=== PATIENT | male | born 1985 | race Two or more races ===

== ENCOUNTER 2020-06-12 20:31 | Inpatient (IN) | payer MEDICAID ==
[~2020-06-12] VITALS: Ht 165.1 cm; Wt 51.5 kg
[2020-06-12] MEDS ORDERED: DEXTROSE 10% 1,000 ML IV ONE ×2 (21:00→23:45)
[2020-06-12] MEDS ORDERED: DEXTROSE (50%) 50ML SYRG IV ONE (21:00)
[2020-06-12 22:00] LABS: Basophils # (auto) 0.1 10 ^3/uL (0-0.2); Basophils % (auto) 0.8 % (0.0-2.0); Eosinophils # (auto) 0.1 10 ^3/uL (0-0.8); Eosinophils % (auto) 1.2 % (0.0-7.0); Hematocrit 35.6 % (41.0-53.0); Hemoglobin 12.1 g/dL (13.5-17.5); Lymphocytes # (auto) 0.4 10 ^3/uL (0.4-5.4); Lymphocytes % (auto) 6.7 % (10.0-50.0); Mean Corpuscular Hemoglobin 31.2 pg (28.0-32.0); Mean Corpuscular Volume 91.6 fL (80.0-100.0); Monocytes # (auto) 0.4 10 ^3/uL (0-1.3); Monocytes % (auto) 6.2 % (0.0-12.0); Neutrophils # (auto) 5.4 10 ^3/uL (1.6-8.6); Neutrophils % (auto) 85.1 % (37.0-80.0); Red Blood Cells 3.89 10^6/uL (4.5-5.90); Red Cell Distribution Width 15.4 % (11.8-14.3); White Blood Cell 6.4 10^3/uL (4.4-10.8)
[2020-06-12 22:07] LABS: Urine Bacteria NONE SEEN /hpf (None Seen); Urine Blood Negative /uL (Negative); Urine Hyaline Cast FEW /lpf (0 - 2); Urine Specific Gravity 1.008 (1.001-1.035); Urine WBC <1 /hpf (0 - 3)
[2020-06-12 22:16] LABS: Calcium 8.2 mg/dL (8.5-10.1); Potassium 3.4 mmol/L (3.5-5.1)
[2020-06-12 22:22] LABS: Albumin 3.3 g/dL (3.4-5.0); BUN/Creatinine Ratio 4.3; Bilirubin, Total 1.1 mg/dL (0.2-1.0); INR 1.03 (0.9-1.15); Partial Thromboplastin Time 25.1 sec (23.0-31.2); Total Protein 6.9 g/dL (6.4-8.2)
[2020-06-12 23:04] LABS: Alcohol, Urine < 3.0 mg/dL (0-10); Amphetamine Screen, Urine NEGATIVE (NEGATIVE); Barbiturate Scree,Urine NEGATIVE (NEGATIVE); Benzodiazephine Screen, Urine NEGATIVE (NEGATIVE); Cannabinoid Screen, Urine POSITIVE (NEGATIVE); Cocaine Screen, Urine NEGATIVE (NEGATIVE); Opiate Scree,Urine NEGATIVE (NEGATIVE); Phencyclidine Screen, Urine NEGATIVE (NEGATIVE)
[2020-06-12] MEDS ORDERED: ONDANSETRON HCL 4 MG/2 ML VIAL IV PRN (23:45)
[2020-06-12] MEDS ORDERED: DEXTROSE (50%) 50ML SYRG IV PRN (23:45)
[2020-06-12] MEDS: ACCU-CHEK COMFORT CURVE STRIP VI SCH (23:45)
[2020-06-12] MEDS ORDERED: NITROGLYCERIN 0.4 MG SL TAB SL PRN (23:45)
[2020-06-12] MEDS ORDERED: ACETAMINOPHEN 325 MG TAB PO PRN (23:45)
[2020-06-13] MEDS: ACCU-CHEK COMFORT CURVE STRIP VI SCH ×16 (00:45→20:00)
[2020-06-13] MEDS ORDERED: DEXTROSE 10% 1,000 ML IV ONE (09:15)
[2020-06-13] MEDS ORDERED: INSLANTI SC (14:33)
[2020-06-13] MEDS ORDERED: DEXTROSE (50%) 50ML SYRG IV PRN (14:45)
[2020-06-13 21:55] VITALS: BP 118/76
[2020-06-13 22:00] VITALS: BP 118/76
== END 2020-06-13 23:34 | disposition home or self-care (01) | DRG 420 ==
LOC: EDBD 20:31 → ER 20:35 → TELE 23:33 → TELE-CENTR 06-13 15:43
PROVIDERS: ADMIT Hospitalist; ATTEND Hospitalist
DX: E11.649 Type 2 diabetes mellitus with hypoglycemia without coma (principal); E87.6 Hypokalemia; Z20.822 Contact with and (suspected) exposure to COVID-19; F12.90 Cannabis use, unspecified, uncomplicated; F17.210 Nicotine dependence, cigarettes, uncomplicated; Z79.4 Long term (current) use of insulin; Z88.5 Allergy status to narcotic agent; Z88.6 Allergy status to analgesic agent
CPT/HCPCS: 36415; 70450; 71045; 80053; 80307; 80320; 81001; 82010; 82962; 85025; 85610; 85730; 87426; 96361; 96374; 99291; G0378

== ENCOUNTER 2022-03-05 13:33 | Inpatient (IN) | payer MEDICAID ==
[~2022-03-05] VITALS: Ht 165.1 cm; Wt 55.4 kg
[~2022-03-05 13:33] MED LIST: INSLANTI SC
[2022-03-05] MEDS ORDERED: SODIUM CHLORIDE 0.9% 1,000 ML IV ONE (13:45)
[2022-03-05] MEDS ORDERED: InsuLIN R (HUMAN) 100 UNITS in SODIUM CHL 0.9% 99 ML IV SCH ×2 (14:15→14:45)
[2022-03-05] MEDS ORDERED: DEXTROSE (50%) 50ML SYRG IV PRN ×3 (14:15→16:30)
[2022-03-05] MEDS ORDERED: INSULIN LANTUS (GLARGINE) 1 /0.01ml (100units/ml) SC ONE (14:15)
[2022-03-05 14:20] LABS: Albumin 3.9 g/dL (3.4-5.0); Basophils # (auto) 0 10 ^3/uL (0-0.2); Calcium 8.5 mg/dL (8.5-10.1); Eosinophils # (auto) 0 10 ^3/uL (0-0.8); Eosinophils % (auto) 0.4 % (0.0-7.0); Monocytes # (auto) 0.3 10 ^3/uL (0-1.3); Potassium 3.9 mmol/L (3.5-5.1); White Blood Cell 5.5 10^3/uL (4.4-10.8)
[2022-03-05 14:21] LABS: Basophils % (auto) 0.4 % (0.0-2.0); Hematocrit 43.2 % (41.0-53.0); Hemoglobin 13.8 g/dL (13.5-17.5); Lymphocytes # (auto) 1.9 10 ^3/uL (0.4-5.4); Lymphocytes % (auto) 35.3 % (10.0-50.0); Mean Corpuscular Hemoglobin 25.6 pg (28.0-32.0); Mean Corpuscular Volume 80.1 fL (80.0-100.0); Monocytes % (auto) 5.5 % (0.0-12.0); Neutrophils # (auto) 3.2 10 ^3/uL (1.6-8.6); Neutrophils % (auto) 58.4 % (37.0-80.0); Nucleated Red Blood Cells % 0.2 %; Red Blood Cells 5.39 10^6/uL (4.5-5.90); Red Cell Distribution Width 16.2 % (11.8-14.3)
[2022-03-05 14:28] LABS: BUN/Creatinine Ratio 5.6; Bilirubin, Total 0.2 mg/dL (0.2-1.0); Total Protein 7.1 g/dL (6.4-8.2)
[2022-03-05] MEDS ORDERED: ACCU-CHEK COMFORT CURVE STRIP VI SCH ×2 (15:00)
[2022-03-05] MEDS: SODIUM CHLORIDE 0.9% 1,000 ML IV SCH ×3 (15:49→20:23)
[2022-03-05] MEDS ORDERED: ONDANSETRON HCL 4 MG/2 ML VIAL IV PRN (16:30)
[2022-03-05] MEDS ORDERED: ACETAMINOPHEN 500 MG TAB PO PRN (16:30)
[2022-03-05] MEDS ORDERED: HYDROcodone-ACET 5/325MG TAB PO PRN (16:30)
[2022-03-05] MEDS ORDERED: MORPHINE SULFATE INJ 2 MG/ml SYRG IV PRN (16:30)
[2022-03-05] MEDS ORDERED: SODIUM CHLORIDE 0.9% 1,000 ML IV SCH (18:15)
[2022-03-05] MEDS: ACCU-CHEK COMFORT CURVE STRIP VI SCH ×2 (20:09→23:50)
[2022-03-05] MEDS: InsuLIN REG 1unit/0.01ml Soln (100units/ml) SC SCH ×2 (20:18→23:53)
[2022-03-05 20:32] LABS: Anion Gap 11 (5-15); BUN/Creatinine Ratio 7.1; Blood Urea Nitrogen 6 mg/dL (7-18); Calcium 8.1 mg/dL (8.5-10.1); Carbon Dioxide 24 mmol/L (21-32); Chloride 104 mmol/L (98-107); GFR African American 130 mL/min; GFR Non-African American 107 mL/min; Glucose 332 mg/dL (74-106); Potassium 3.6 mmol/L (3.5-5.1); Sodium 139 mmol/L (136-145)
[2022-03-05 21:40] VITALS: BP 99/0
[2022-03-05] MEDS: PANTOPRAZOLE 40 MG/10 ML VIAL INJ IV SCH (22:23)
[2022-03-06 00:20] LABS: Urine Bacteria NONE SEEN /hpf (None Seen); Urine Blood Negative /uL (Negative); Urine Specific Gravity 1.029 (1.001-1.035); Urine WBC <1 /hpf (0 - 3)
[2022-03-06 02:10] LABS: BUN/Creatinine Ratio 10.8; Calcium 7.8 mg/dL (8.5-10.1); Potassium 3.5 mmol/L (3.5-5.1)
[2022-03-06] MEDS: SODIUM CHLORIDE 0.9% 1,000 ML IV SCH ×4 (02:55→22:55)
[2022-03-06] MEDS: ACCU-CHEK COMFORT CURVE STRIP VI SCH ×6 (04:18→23:49)
[2022-03-06] MEDS: InsuLIN REG 1unit/0.01ml Soln (100units/ml) SC SCH ×6 (04:23→23:50)
[2022-03-06 05:00] VITALS: BP 96/56
[2022-03-06 07:18] LABS: Basophils # (auto) 0 10 ^3/uL (0-0.2); Eosinophils # (auto) 0.1 10 ^3/uL (0-0.8); Mean Corpuscular Hemoglobin 25.9 pg (28.0-32.0); Mean Corpuscular Hgb Conc. 32.8 g/dL (32.0-36.0); Monocytes # (auto) 0.5 10 ^3/uL (0-1.3); Nucleated Red Blood Cells % 0.1 %; Red Cell Distribution Width 16.4 % (11.8-14.3)
[2022-03-06 07:19] LABS: Basophils % (auto) 0.3 % (0.0-2.0); Eosinophils % (auto) 1.1 % (0.0-7.0); Hematocrit 40.3 % (41.0-53.0); Hemoglobin 13.2 g/dL (13.5-17.5); Lymphocytes # (auto) 2.4 10 ^3/uL (0.4-5.4); Lymphocytes % (auto) 29.7 % (10.0-50.0); Monocytes % (auto) 6.5 % (0.0-12.0); Neutrophils # (auto) 5.1 10 ^3/uL (1.6-8.6); Neutrophils % (auto) 62.4 % (37.0-80.0); White Blood Cell 8.1 10^3/uL (4.4-10.8)
[2022-03-06 07:45] LABS: BUN/Creatinine Ratio 17.9; Potassium 3.6 mmol/L (3.5-5.1)
[2022-03-06 07:46] LABS: Calcium 7.9 mg/dL (8.5-10.1)
[2022-03-06 08:54] VITALS: BP 86/50
[2022-03-06] MEDS ORDERED: INSULIN LANTUS (GLARGINE) 1 /0.01ml (100units/ml) SC SCH ×2 (10:00→12:00)
[2022-03-06] MEDS: MULTIPLE VITAMIN TAB PO SCH (10:39)
[2022-03-06] MEDS: THIAMINE HCL 100 MG TAB PO SCH (10:40)
[2022-03-06] MEDS: PANTOPRAZOLE 40 MG/10 ML VIAL INJ IV SCH ×2 (10:40→20:47)
[2022-03-06] MEDS ORDERED: MORPHINE SULFATE INJ 2 MG/ml SYRG IV ONE (11:45)
[2022-03-06] MEDS ORDERED: LORazepam 0.5 MG TAB PO PRN (12:15)
[2022-03-06] MEDS ORDERED: LORazepam 2MG/ML-1ML VIAL IV PRN (12:15)
[2022-03-06] MEDS: HYDROcodone-ACET 5/325MG TAB PO PRN (12:29)
[2022-03-06 12:39] VITALS: BP 108/78
[2022-03-06 17:17] VITALS: BP 123/78
[2022-03-06 22:00] VITALS: BP 91/55
[2022-03-07] MEDS: ACCU-CHEK COMFORT CURVE STRIP VI SCH ×3 (04:00→12:42)
[2022-03-07] MEDS: InsuLIN REG 1unit/0.01ml Soln (100units/ml) SC SCH ×3 (04:00→12:43)
[2022-03-07] MEDS: HYDROcodone-ACET 5/325MG TAB PO PRN ×2 (04:33→08:54)
[2022-03-07 05:00] VITALS: BP 111/73
[2022-03-07] MEDS: SODIUM CHLORIDE 0.9% 1,000 ML IV SCH ×2 (05:35→08:56)
[2022-03-07 06:43] LABS: Potassium 3.7 mmol/L (3.5-5.1)
[2022-03-07 06:46] LABS: Basophils # (auto) 0 10 ^3/uL (0-0.2); Eosinophils # (auto) 0.1 10 ^3/uL (0-0.8); Lymphocytes # (auto) 1.2 10 ^3/uL (0.4-5.4); Mean Corpuscular Hemoglobin 25.2 pg (28.0-32.0); Mean Corpuscular Volume 78.8 fL (80.0-100.0); Monocytes # (auto) 0.5 10 ^3/uL (0-1.3)
[2022-03-07 06:49] LABS: Basophils % (auto) 0.4 % (0.0-2.0); Eosinophils % (auto) 1.4 % (0.0-7.0); Hematocrit 37.1 % (41.0-53.0); Hemoglobin 11.9 g/dL (13.5-17.5); Lymphocytes % (auto) 25.6 % (10.0-50.0); Mean Corpuscular Hgb Conc. 32.1 g/dL (32.0-36.0); Monocytes % (auto) 10.3 % (0.0-12.0); Neutrophils # (auto) 2.9 10 ^3/uL (1.6-8.6); Neutrophils % (auto) 62.3 % (37.0-80.0); Red Blood Cells 4.71 10^6/uL (4.5-5.90); Red Cell Distribution Width 16.3 % (11.8-14.3); White Blood Cell 4.7 10^3/uL (4.4-10.8)
[2022-03-07 06:56] LABS: Albumin 3.1 g/dL (3.4-5.0); BUN/Creatinine Ratio 6.8; Bilirubin, Total 0.5 mg/dL (0.2-1.0); Total Protein 5.8 g/dL (6.4-8.2)
[2022-03-07 08:40] VITALS: BP 110/78
[2022-03-07] MEDS: PANTOPRAZOLE 40 MG/10 ML VIAL INJ IV SCH (08:53)
[2022-03-07] MEDS: MULTIPLE VITAMIN TAB PO SCH (08:54)
[2022-03-07] MEDS: THIAMINE HCL 100 MG TAB PO SCH (08:54)
[2022-03-07] MEDS ORDERED: INSULIN LANTUS (GLARGINE) 1 /0.01ml (100units/ml) SC SCH (12:00)
[2022-03-07 12:44] VITALS: BP 120/85
[2022-03-07] MEDS ORDERED: THIA100T13 PO (14:22)
[2022-03-07] MEDS ORDERED: INSLANTI SC (14:22)
[2022-03-07] MEDS ORDERED: INSLISPI SC (14:22)
== END 2022-03-07 16:18 | disposition home health service (06) | DRG 420 ==
LOC: EDBD 13:33 → ER 13:33 → OVERFLOW 16:25 → WEST WING 21:40
PROVIDERS: ADMIT Nurse Practitioner Acute Care; ATTEND Student in an Organized Health Care Education/Training Program
DX: E11.00 Type 2 diabetes mellitus with hyperosmolarity without nonketotic hyperglycemic-hyperosmolar coma (NKHHC) (principal); D69.6 Thrombocytopenia, unspecified; R64 Cachexia; K70.30 Alcoholic cirrhosis of liver without ascites; K62.5 Hemorrhage of anus and rectum; K86.1 Other chronic pancreatitis; Z68.20 Body mass index [BMI] 20.0-20.9, adult; E11.65 Type 2 diabetes mellitus with hyperglycemia; F17.210 Nicotine dependence, cigarettes, uncomplicated; I10 Essential (primary) hypertension; Z79.4 Long term (current) use of insulin; Z88.5 Allergy status to narcotic agent; K64.9 Unspecified hemorrhoids
CPT/HCPCS: 36415; 36600; 74176; 80048; 80053; 81001; 82010; 82140; 82270; 82805; 82962; 83036; 83690; 83735; 83930; 84100; 85025; 87426; 96360; 96361; 96372; 99291; C9113; G0378; J1815; J2405

== ENCOUNTER 2022-09-16 12:39 | Emergency (ER) | payer MEDICAID ==
[~2022-09-16] VITALS: Ht 160 cm; Wt 68.1 kg
[~2022-09-16 12:39] MED LIST changes: +INSLISPI SC; +THIA100T13 PO
[2022-09-16] MEDS ORDERED: SODIUM CHLORIDE 0.9% 1,000 ML IV ONE ×2 (14:15→16:00)
[2022-09-16 14:30] LABS: Basophils # (auto) 0 10 ^3/uL (0-0.2); Basophils % (auto) 1.1 % (0.0-2.0); Eosinophils # (auto) 0 10 ^3/uL (0-0.8); Eosinophils % (auto) 0.2 % (0.0-7.0); Hematocrit 43.4 % (41.0-53.0); Hemoglobin 14.6 g/dL (13.5-17.5); Lymphocytes # (auto) 1.6 10 ^3/uL (0.4-5.4); Lymphocytes % (auto) 37.3 % (10.0-50.0); Mean Corpuscular Hemoglobin 27.7 pg (28.0-32.0); Mean Corpuscular Hgb Conc. 33.7 g/dL (32.0-36.0); Mean Corpuscular Volume 82.2 fL (80.0-100.0); Monocytes # (auto) 0.2 10 ^3/uL (0-1.3); Monocytes % (auto) 5.5 % (0.0-12.0); Neutrophils # (auto) 2.4 10 ^3/uL (1.6-8.6); Neutrophils % (auto) 55.9 % (37.0-80.0); Nucleated Red Blood Cells % 0.1 %; Red Blood Cells 5.28 10^6/uL (4.5-5.90); Red Cell Distribution Width 14.6 % (11.8-14.3); White Blood Cell 4.4 10^3/uL (4.4-10.8)
[2022-09-16 14:37] LABS: Base Excess -2.9 mmol/L (-2.0-2.0)
[2022-09-16 14:49] LABS: Albumin 3.8 g/dL (3.4-5.0); BUN/Creatinine Ratio 8.8 (10.0-20.0); Calcium 8.7 mg/dL (8.5-10.1)
[2022-09-16 14:52] LABS: Bilirubin, Total 0.2 mg/dL (0.2-1.0); Total Protein 7.1 g/dL (6.4-8.2)
[2022-09-16 15:51] VITALS: BP 109/76; PULSE 84; RESP 12; TEMP 98.1; O2SAT 99
== END 2022-09-16 16:00 | disposition home or self-care (01) ==
LOC: EDBD 12:39 → ER 12:42
DX: E11.65 Type 2 diabetes mellitus with hyperglycemia (principal); F10.129 Alcohol abuse with intoxication, unspecified; I10 Essential (primary) hypertension; F17.210 Nicotine dependence, cigarettes, uncomplicated; Z88.5 Allergy status to narcotic agent; Z79.899 Other long term (current) drug therapy; Z79.84 Long term (current) use of oral hypoglycemic drugs
CPT/HCPCS: 36415; 36600; 71045; 80053; 80320; 82140; 82805; 83690; 83735; 84484; 85025; 96360; 96361; 99284; J7030

== ENCOUNTER 2022-10-27 16:16 | Inpatient (IN) | payer MEDICAID ==
[~2022-10-27] VITALS: Ht 165.1 cm; Wt 51.7 kg
[2022-10-27] MEDS ORDERED: SODIUM CHLORIDE 0.9% 1,000 ML IV ONE (16:45)
[2022-10-27] MEDS ORDERED: ONDANSETRON HCL 4 MG/2 ML VIAL IV ONE (16:45)
[2022-10-27 17:14] LABS: Basophils # (auto) 0 10 ^3/uL (0-0.2); Basophils % (auto) 0.5 % (0.0-2.0); Eosinophils # (auto) 0.1 10 ^3/uL (0-0.8); Eosinophils % (auto) 2.2 % (0.0-7.0); Hematocrit 40.2 % (41.0-53.0); Hemoglobin 13.3 g/dL (13.5-17.5); Lymphocytes % (auto) 40.9 % (10.0-50.0); Mean Corpuscular Hemoglobin 28.3 pg (28.0-32.0); Mean Corpuscular Hgb Conc. 33.2 g/dL (32.0-36.0); Mean Corpuscular Volume 85.4 fL (80.0-100.0); Monocytes # (auto) 0.3 10 ^3/uL (0-1.3); Neutrophils # (auto) 2.5 10 ^3/uL (1.6-8.6); Neutrophils % (auto) 50.4 % (37.0-80.0); Nucleated Red Blood Cells % 0.1 %; Red Blood Cells 4.71 10^6/uL (4.5-5.90); Red Cell Distribution Width 15.9 % (11.8-14.3); White Blood Cell 4.9 10^3/uL (4.4-10.8)
[2022-10-27] MEDS ORDERED: INSULIN LISPRO (HUMAN) 100 UNITS/ML ML SC ONE (17:15)
[2022-10-27 17:25] LABS: Alanine Aminotransferase 30 U/L (7-40); Albumin 3.7 g/dL (3.2-4.8); Alkaline Phosphatase 129 U/L (46-116); Anion Gap 9 (5-15); Aspartate Aminotransferase 32 U/L (13-40); BUN/Creatinine Ratio 9.9 (10.0-20.0); Blood Alcohol 295.7 mg/dL (<10); Blood Urea Nitrogen 9 mg/dL (9-23); Calcium 8.2 mg/dL (8.7-10.4); Carbon Dioxide 24 mmol/L (20-30); Chloride 105 mmol/L (98-107); Lipase 18 U/L (12-53); Sodium 138 mmol/L (136-145)
[2022-10-27 17:26] LABS: Bilirubin, Total 0.2 mg/dL (0.2-1.0); Total Protein 6.1 g/dL (5.7-8.2)
[2022-10-27 17:33] VITALS: PULSE 68; RESP 15; O2SAT 99
[2022-10-27 17:39] LABS: Base Excess -4.1 mmol/L (-2.0-2.0)
[2022-10-27 17:50] LABS: Glucose 407 mg/dL (74-106)
[2022-10-27 18:13] LABS: Amphetamine Screen, Urine Neg (NEGATIVE); Opiate Scree,Urine Neg (NEGATIVE); Urine Bacteria FEW /hpf (None Seen); Urine Blood Negative /uL (Negative); Urine Clarity Clear (Clear); Urine Color Colorless (Yellow); Urine Mucus FEW (None Seen); Urine Protein, UAD Negative (Negative); Urine Specific Gravity 1.016 (1.001-1.035); Urine Urobilinogen Normal (Negative); Urine WBC <1 /hpf (0 - 3)
[2022-10-27 18:14] LABS: Barbiturate Scree,Urine Neg (NEGATIVE); Benzodiazephine Screen, Urine Neg (NEGATIVE); Cannabinoid Screen, Urine Neg (NEGATIVE); Cocaine Screen, Urine Neg (NEGATIVE); Phencyclidine Screen, Urine Neg (NEGATIVE)
[2022-10-27] MEDS ORDERED: NOREPINEPHRINE 8 MG/250ML KIT 250 ML IV ONE (18:22)
[2022-10-27] MEDS: NOREPINEPHRINE 8 MG/250ML KIT 250 ML IV SCH (18:24)
[2022-10-27 19:40] VITALS: PULSE 70; RESP 8; O2SAT 98
[2022-10-28 02:00] VITALS: RESP 10; O2SAT 98
[2022-10-28] MEDS ORDERED: DOCUSATE SOD 100 MG CAP PO PRN (06:00)
[2022-10-28] MEDS ORDERED: HYDROcodone-ACET 5/325MG TAB PO PRN (06:00)
[2022-10-28] MEDS ORDERED: NITROGLYCERIN 0.4 MG SL TAB SL PRN (06:00)
[2022-10-28] MEDS ORDERED: DEXTROSE (50%) 50ML SYRG IV PRN (06:00)
[2022-10-28] MEDS ORDERED: MORPHINE SULFATE INJ 2 MG/ml SYRG IV PRN (06:00)
[2022-10-28] MEDS ORDERED: ACETAMINOPHEN 325 MG TAB PO PRN (06:00)
[2022-10-28] MEDS ORDERED: ONDANSETRON HCL 4 MG/2 ML VIAL IV PRN (06:00)
[2022-10-28] MEDS: SODIUM CHLOR 0.9% PF (SALINE LOCK) 10ML VIAL/SYR IV SCH ×3 (06:19→22:18)
[2022-10-28] MEDS: InsuLIN REG 1unit/0.01ml Soln (100units/ml) SC SCH ×3 (07:00→17:14)
[2022-10-28 07:06] LABS: Basophils # (auto) 0 10 ^3/uL (0-0.2); Basophils % (auto) 0.5 % (0.0-2.0); Eosinophils # (auto) 0.1 10 ^3/uL (0-0.8); Eosinophils % (auto) 1.3 % (0.0-7.0); Hematocrit 36.9 % (41.0-53.0); Hemoglobin 12.4 g/dL (13.5-17.5); Lymphocytes % (auto) 23.4 % (10.0-50.0); Mean Corpuscular Hemoglobin 28.3 pg (28.0-32.0); Mean Corpuscular Hgb Conc. 33.7 g/dL (32.0-36.0); Monocytes # (auto) 0.3 10 ^3/uL (0-1.3); Monocytes % (auto) 6.7 % (0.0-12.0); Neutrophils % (auto) 68.1 % (37.0-80.0); Nucleated Red Blood Cells % 0.1 %; Red Cell Distribution Width 16.2 % (11.8-14.3); White Blood Cell 4.5 10^3/uL (4.4-10.8)
[2022-10-28] MEDS: ACCU-CHEK COMFORT CURVE STRIP VI SCH ×4 (07:10→22:19)
[2022-10-28 07:15] VITALS: PULSE 84; RESP 13; O2SAT 99
[2022-10-28 08:05] LABS: Alanine Aminotransferase 26 U/L (7-40); Albumin 3.5 g/dL (3.2-4.8); Alkaline Phosphatase 107 U/L (46-116); Aspartate Aminotransferase 24 U/L (13-40); Bilirubin, Total 0.2 mg/dL (0.2-1.0); Calcium 7.8 mg/dL (8.5-10.1); Carbon Dioxide 21 mmol/L (20-30); Glucose 105 mg/dL (74-106); Total Protein 5.7 g/dL (5.7-8.2)
[2022-10-28 08:08] LABS: BUN/Creatinine Ratio 8.6 (10.0-20.0); Blood Urea Nitrogen < 5 mg/dL (9-23)
[2022-10-28 08:43] LABS: Anion Gap 9 (5-15); Chloride 112 mmol/L (98-107); Potassium 3.5 mmol/L (3.5-5.1); Sodium 142 mmol/L (136-145)
[2022-10-28] MEDS: MULTIPLE VITAMIN TAB PO SCH (10:24)
[2022-10-28] MEDS: THIAMINE HCL 100 MG TAB PO SCH (10:25)
[2022-10-28] MEDS: FOLIC ACID 1 MG TAB PO SCH (10:25)
[2022-10-28] MEDS: FAMOTIDINE (10MG/ML) 2ML VL IV SCH ×2 (10:25→22:17)
[2022-10-28] MEDS: NOREPINEPHRINE 8 MG/250ML KIT 250 ML IV SCH (18:24)
[2022-10-28 19:20] VITALS: PULSE 87; RESP 15; O2SAT 97
[2022-10-28] MEDS ORDERED: InsuLIN REG 1unit/0.01ml Soln (100units/ml) SC SCH (22:00)
[2022-10-29] VITALS (7 sets, daily range): BP systolic 111–128; BP diastolic 66–83; PULSE 61–98; RESP 20–21; TEMP 97.7–98.8; O2SAT 98–100
[2022-10-29] MEDS ORDERED: NALT380I IM (00:43)
[2022-10-29] MEDS ORDERED: GABA-1250 PO (00:43)
[2022-10-29] MEDS ORDERED: INSU100S4 SC (00:44)
[2022-10-29] MEDS ORDERED: INSLANTI SC (00:46)
[2022-10-29] MEDS: ACCU-CHEK COMFORT CURVE STRIP VI SCH ×2 (05:57→11:55)
[2022-10-29] MEDS: SODIUM CHLOR 0.9% PF (SALINE LOCK) 10ML VIAL/SYR IV SCH (06:00)
[2022-10-29 06:27] LABS: Basophils # (auto) 0 10 ^3/uL (0-0.2); Basophils % (auto) 0.7 % (0.0-2.0); Eosinophils # (auto) 0.1 10 ^3/uL (0-0.8); Eosinophils % (auto) 2.3 % (0.0-7.0); Hematocrit 38.2 % (41.0-53.0); Hemoglobin 12.8 g/dL (13.5-17.5); Lymphocytes # (auto) 1.1 10 ^3/uL (0.4-5.4); Lymphocytes % (auto) 34.3 % (10.0-50.0); Mean Corpuscular Hemoglobin 28.2 pg (28.0-32.0); Mean Corpuscular Hgb Conc. 33.7 g/dL (32.0-36.0); Mean Corpuscular Volume 83.7 fL (80.0-100.0); Monocytes # (auto) 0.3 10 ^3/uL (0-1.3); Monocytes % (auto) 9.5 % (0.0-12.0); Neutrophils # (auto) 1.7 10 ^3/uL (1.6-8.6); Neutrophils % (auto) 53.2 % (37.0-80.0); Nucleated Red Blood Cells % 0.1 %; Red Blood Cells 4.56 10^6/uL (4.5-5.90); Red Cell Distribution Width 15.6 % (11.8-14.3); White Blood Cell 3.1 10^3/uL (4.4-10.8)
[2022-10-29] MEDS: InsuLIN REG 1unit/0.01ml Soln (100units/ml) SC SCH ×2 (06:52→11:59)
[2022-10-29 06:53] LABS: Alanine Aminotransferase 26 U/L (7-40); Albumin 3.6 g/dL (3.2-4.8); Alkaline Phosphatase 137 U/L (46-116); Anion Gap 5 (5-15); Aspartate Aminotransferase 27 U/L (13-40); BUN/Creatinine Ratio 6.8 (10.0-20.0); Blood Urea Nitrogen 5 mg/dL (9-23); Calcium 8.9 mg/dL (8.7-10.4); Carbon Dioxide 29 mmol/L (20-30); Chloride 104 mmol/L (98-107); Sodium 138 mmol/L (136-145)
[2022-10-29 06:54] LABS: Bilirubin, Total 0.5 mg/dL (0.2-1.0); Glucose 239 mg/dL (74-106)
[2022-10-29] MEDS: FOLIC ACID 1 MG TAB PO SCH (09:20)
[2022-10-29] MEDS: MULTIPLE VITAMIN TAB PO SCH (09:20)
[2022-10-29] MEDS: THIAMINE HCL 100 MG TAB PO SCH (09:20)
[2022-10-29] MEDS: FAMOTIDINE (10MG/ML) 2ML VL IV SCH (10:00)
[2022-10-29] MEDS ORDERED: DEXTROSE (50%) 50ML SYRG IV PRN ×3 (12:30)
[2022-10-29] MEDS ORDERED: INSULIN LANTUS (GLARGINE) 1 /0.01ml (100units/ml) SC ONE ×2 (12:30)
[2022-10-29] MEDS ORDERED: ACCU-CHEK COMFORT CURVE STRIP VI SCH (17:00)
[2022-10-29] MEDS ORDERED: InsuLIN REG 1unit/0.01ml Soln (100units/ml) SC SCH ×6 (17:00→22:00)
[2022-10-30] MEDS ORDERED: INSULIN LANTUS (GLARGINE) 1 /0.01ml (100units/ml) SC SCH (07:00)
== END 2022-10-29 15:21 | disposition home or self-care (01) | DRG 52 ==
LOC: EDBD 16:16 → ER 16:16 → TELE 10-28 05:58 → TELE-EAST 10-28 23:01
PROVIDERS: ADMIT Nurse Practitioner Family; ATTEND Nurse Practitioner Family
DX: G92.8 Other toxic encephalopathy (principal); I95.9 Hypotension, unspecified; E10.65 Type 1 diabetes mellitus with hyperglycemia; F10.129 Alcohol abuse with intoxication, unspecified; F17.210 Nicotine dependence, cigarettes, uncomplicated; Z88.6 Allergy status to analgesic agent; Y90.8 Blood alcohol level of 240 mg/100 ml or more
CPT/HCPCS: 36415; 36600; 70450; 80053; 80307; 80320; 81001; 82805; 82962; 83690; 83880; 84484; 85025; 96360; 96372; G0378; J1815; J3490

== ENCOUNTER 2025-01-10 16:17 | Inpatient (IN) | payer MEDICAID ==
[~2025-01-10] VITALS: Ht 165.1 cm; Wt 50.0 kg
[~2025-01-10 16:17] MED LIST changes: +GABA-1250 PO; +NALT380I IM
[2025-01-10 17:09] VITALS: PULSE 98; RESP 16; O2SAT 98
[2025-01-10 17:58] LABS: Hematocrit 47.7 % (41.0-53.0); Hemoglobin 16.1 g/dL (13.5-17.5); Mean Corpuscular Hemoglobin 29.1 pg (28.0-32.0); Mean Corpuscular Volume 86.2 fL (80.0-100.0); Nucleated Red Blood Cells % 0.2 %
--- NOTE | 2025-01-10 18:11 | DVH ---
EXAM: CT HEAD WITHOUT CONTRAST INDICATION: [facility] TECHNIQUE: CT images of the head were obtained without administration of IV contrast. CT scans at this facility use dose modulation, iterative reconstruction, and/or weight based dosing when appropriate to reduce radiation dose to as low as reasonably achievable. COMPARISON: CT HEAD WITHOUT CONTRAST on DOS: 10/27/22 FINDINGS: PARENCHYMA: No acute hemorrhage. There is no mass effect, midline shift, or herniation. There is preservation of the oliver white differentiation. Mild scattered hypoattenuation along the periventricular, centrum semiovale, and deep white matter tracts, which are nonspecific however statistically most likely represent chronic microvascular ischemic change. VENTRICLES: No hydrocephalus. EXTRA-AXIAL SPACES: No extra-axial fluid collections. OTHER: The bony structures are intact. Visualized portions of the paranasal sinuses and mastoid air cells are clear. Degenerative change of bilateral temporomandibular joints. IMPRESSION: 1. No CT evidence of an acute intracranial abnormality.
[2025-01-10 18:17] LABS: Alanine Aminotransferase 26 U/L (7-40); Anion Gap 19 (5-15); BUN/Creatinine Ratio 8.7 (10.0-20.0); Bilirubin, Total 0.4 mg/dL (0.2-1.0); Blood Urea Nitrogen 9 mg/dL (9-23); Calcium 10.0 mg/dL (8.7-10.4); Carbon Dioxide 25 mmol/L (20-31); Potassium 3.7 mmol/L (3.5-5.1); Sodium 137 mmol/L (136-145); Total Protein 7.9 g/dL (5.7-8.2)
[2025-01-10 18:21] LABS: Albumin 4.8 g/dL (3.2-4.8); Alkaline Phosphatase 229 U/L (46-116); Chloride 93 mmol/L (98-107); Glucose 360 mg/dL (74-106)
--- NOTE | 2025-01-10 18:28 | DVH ---
CHEST RADIOGRAPH Indication: ams Technique: Single frontal view of the chest was obtained Comparison: XY CHEST XRAY 1 VIEW on DOS: 09/16/22, XY CHEST PORTABLE on DOS: 08/23/22, CHEST XRAY 1 VIEW on DOS: 06/12/20 FINDINGS: Lines and Tubes: None Lungs: No focal consolidation. Pleura: No effusion. No pneumothorax. Cardiomediastinal contours: Unremarkable Bones: No acute osseous abnormality. IMPRESSION: 1. No acute cardiopulmonary disease.
[2025-01-10 18:41] LABS: Lactic Acid w/Reflex 5.6 mmol/L (0.4-2.0)
[2025-01-10 18:45] LABS: Lipase 46 U/L (12-53)
[2025-01-10] MEDS: SODIUM CHLORIDE 0.9% 1,000 ML IV ONE ×2 (18:45→22:35)
--- NOTE | 2025-01-10 18:51 | ED.PDOC ---
History of Present Illness HPI Comments 40 y/o M is BIBA for c/c of ALOC. Significant history for DM. Per EMS personnel report, patient was found altered by family, this afternoon. Family commented on patient running out of his insulin, lately. Upon arrival to ED, patient was tachycardic, diaphoretic, and confused but did admit to drinking a lot of alcohol, recently. Blood glucose of 360 upon arrival to ED. Chief Complaint: ALOC Time Seen by MD: 16:30 Primary Care Provider: NYA Reviewed Notes: Nurses Notes, Payroll Supervisor Notes, Medications, Allergies Allergies: Coded Allergies: Morphine (Verified Allergy, Unknown, 03/05/22) Home Meds Active Scripts Thiamine HCl (Thiamine Hydrochloride) 100 Mg Tab, 100 MG PO DAILY for 30 Days, #30 TAB Prov:MARIA DEL ROSARIO NGUYEN MD 03/07/22 Insulin Lispro (Human) (Humalog) 100 Unit/Ml Inj, 12 UNIT SC TID for 30 Days, #30 INJ Prov:MARIA DEL ROSARIO NGUYEN MD 03/07/22 Insulin Glargine (Lantus) 100 Unit/Ml Inj, 40 UNIT SC DAILY for 30 Days, #30 INJ Prov:MARIA DEL ROSARIO NGUYEN MD 03/07/22 Reported Medications Insulin Glargine (Lantus) 100 Unit/Ml Inj, 40 UNIT SC QPM, INJ 10/29/22 Naltrexone (Vivitrol) 380 Mg Inj, IM 10/29/22 Gabapentin (Gabapentin) 300 Mg Cap, 1 CAP PO TID 10/29/22 Insulin Glargine (Lantus) 100 Unit/Ml Inj, 20 UNIT SC QPM, INJ 06/13/20 Information Source: Patient, Emergency Med Personnel Mode of Arrival: EMS Severity: Moderate Timing: Hours Duration: Since onset Prehospital treatment: 12 Lead EKG, Accucheck, Data Entry Past Medical History PAST MEDICAL HISTORY: DM, HTN, Liver Surgical History: Denies all surgeries Family History Family History: Reviewed,noncontributory to illness Social History Smoker: Cigarettes Alcohol: Heavy Drugs: Denies Drug Use Lives In: Home All Other Systems: Reviewed and Negative (Comprehensive review of systems are negative unless stated in HPI) Physical Exam General Appearance: No Apparent Distress, Normal HEENT: Normal ENT Inspection, Pharynx Normal, TMs Normal Neck: Full Range of Motion, Non-Tender, Normal, Normal Inspection Respiratory: Chest Non-Tender, Lungs Clear, No Accessory Muscle Use, No Respiratory Distress, Normal Breath Sounds Cardiovascular: No Edema, No JVD, No Murmur, No Gallop, Normal Peripheral Pulses, Tachycardia, Other (regular rhythm ) Breast Exam: Deferred Gastrointestinal: No Organomegaly, Non Tender, No Pulsatile Mass, Normal Bowel Sounds, Soft Genitalia: Deferred Pelvic: Deferred Rectal: Deferred Extremities: No calf tenderness, Normal capillary refill, Normal inspection, Normal range of motion, Non-tender, No pedal edema Musculoskeletal : Apperance: Normal Neurologic: psychologist research assistant II-XII nml as Tested, No Motor Deficits, No Sensory Deficits, Other (confused ) Cerebellar Function: Normal Reflexes: Normal Skin: Dry, Pallor (diaphorectic ), Warm Lymphatic: No Adenopathy Was a procedure done? Was a procedure done?: No Differential Dx Considerations may include: hyperglycemia, DKA, medication noncompliance, encephlopathy, dehydration, tomas ctrolyte imbalance, among others X-Ray, Labs, Meds, VS Vital Signs Date Time Temp Pulse Resp B/P (MAP) Pulse Ox O2 Delivery O2 Flow Rate FiO2 01/10/25 17:46 101 01/10/25 17:09 98.1 98 16 110/81 (91) 98 98.1 01/10/25 17:09 98 16 98 Room Air* 0 21 Lab Test 01/10/25 18:21 01/10/25 17:14 Range/Units Troponin I High Sensitivity 4 < 3 L </=54 ng/L White Blood Count 5.3 4.4-10.8 10^3/uL Red Blood Count 5.54 4.5-5.90 10^6/uL Hemoglobin 16.1 13.5-17.5 g/dL Hematocrit 47.7 41.0-53.0 % Mean Corpuscular Volume 86.2 80.0-100.0 fL Mean Corpuscular Hemoglobin 29.1 28.0-32.0 pg Mean Corpuscular Hemoglobin Concent 33.8 32.0-36.0 g/dL Red Cell Distribution Width 13.4 11.8-14.3 % Platelet Count 232 140-450 10^3/uL Mean Platelet Volume 8.3 6.9-10.8 fL Neutrophils (%) (Auto) 48.4 37.0-80.0 % Lymphocytes (%) (Auto) 41.7 10.0-50.0 % Monocytes (%) (Auto) 8.1 0.0-12.0 % Eosinophils (%) (Auto) 1.3 0.0-7.0 % Basophils (%) (Auto) 0.5 0.0-2.0 % Neutrophils # (Auto) 2.6 1.6-8.6 10 ^3/uL Lymphocytes # (Auto) 2.2 0.4-5.4 10 ^3/uL Monocytes # (Auto) 0.4 0-1.3 10 ^3/uL Eosinophils # (Auto) 0.1 0-0.8 10 ^3/uL Basophils # (Auto) 0 0-0.2 10 ^3/uL Nucleated Red Blood Cells 0.2 % Sodium Level 137 136-145 mmol/L Potassium Level 3.7 3.5-5.1 mmol/L Chloride Level 93 L 98-107 mmol/L Carbon Dioxide Level 25 20-31 mmol/L Anion Gap 19 H 5-15 Blood Urea Nitrogen 9 9-23 mg/dL Creatinine 1.04 0.700-1.30 mg/dL Glomerular Filtration Rate Calc 93 >90 mL/min BUN/Creatinine Ratio 8.7 L 10.0-20.0 Serum Glucose 360 H 74-106 mg/dL Lactic Acid Level 5.6 *H 0.4-2.0 mmol/L Calcium Level 10.0 8.7-10.4 mg/dL Total Bilirubin 0.4 0.2-1.0 mg/dL Aspartate Amino Transferase (AST) 23 13-40 U/L Alanine Aminotransferase (ALT) 26 7-40 U/L Alkaline Phosphatase 229 H 46-116 U/L Total Protein 7.9 5.7-8.2 g/dL Albumin 4.8 3.2-4.8 g/dL Lipase 46 12-53 U/L Plasma/Serum Blood Alcohol 313.7 H <10 mg/dL Time of 1ST Reevaluation: 17:00 Reevaluation 1ST: Unchanged Patient Education/Counseling: Diagnosis, Treatment Family Education/Counseling: No Family Present SEPSIS Sepsis Screen Physician Orders Urinalysis (01/10/25 16:38) Electrocardigram (01/10/25 16:38) Head Without Contrast (01/10/25 16:38) Blood Culture (01/10/25 16:38) Urine Bacterial Culture (01/10/25 16:38) Chest Portable (01/10/25 16:38) Troponin-I Hs (01/10/25 19:38) Electrocardigram (01/10/25 19:38) Drug Screen (01/10/25 17:52) Sodium Chloride 0.9% (01/10/25 18:45) Ceftriaxone 1gm/50ml (Rocephin) (01/10/25 18:45) Vital Signs Date Time Temp Pulse Resp B/P (MAP) Pulse Ox O2 Delivery O2 Flow Rate FiO2 01/10/25 17:46 101 01/10/25 17:09 98.1 98 16 110/81 (91) 98 98.1 01/10/25 17:09 98 16 98 Room Air* 0 21 Laboratory Tests Test 01/10/25 17:14 Lactic Acid Level 5.6 mmol/L (0.4-2.0) *H White Blood Count 5.3 10^3/uL (4.4-10.8) Departure 1 Departure Time of Disposition: 18:58 (You presented with altered mental status likely secondary to alcohol intoxication however patient also is uncontrolled diabetes and suspected sepsis. We will admit patient for further workup and expert consultation) Impression: Primary Impression: Suspected sepsis Additional Impressions: Acute metabolic encephalopathy Uncontrolled diabetes mellitus Alcohol intoxication Disposition: ADMITTED INPATIENT Admit to: Med Surg Condition: Guarded Critical Care Note Critical Care Time?: Yes Critical care comment: Altered mental status and uncontrolled diabetes with a suspected sepsis Authorized and Performed by: Lane Richardson MD Total critical care time: Approximately 38 minutes Due to a high probability of clinically significant, life threatening deterioration, the patient required my highest level of preparedness to intervene emergently and I personally spent this critical care time directly and personally managing the patient. This critical care time included obtaining a history; examining the patient; pulse oximetry; ordering and review of studies; arranging urgent treatment with development of a management plan; evaluation of patient's response to treatment; frequent reassessment; and, discussions with other providers. This critical care time was performed to assess and manage the high probability of imminent, life-threatening deterioration that could result in multi-organ failure. It was exclusive of separately billable procedures and treating other patients and teaching time. Please see my other sections and the rest of the note for further information on patient assessment and treatment. Stability Stability form required: No Heart Score Heart Score: Heart Score Response (Comments) Value History N/A 0 EKG N/A 0 Age N/A 0 Risk Factors N/A 0 Troponin N/A 0 Total 0 I personally scribed for LANE RICHARDSON MD ([email or web address]) on 01/10/25 at 18:51. Electronically submitted by Arpan Guzman ([email or web address]). LANE RICHARDSON MD Jan 10, 2025 18:51
[2025-01-10 19:20] VITALS: PULSE 101; RESP 19; O2SAT 98
--- NOTE | 2025-01-10 21:43 | DVHHP2 ---
History of Present Illness Reason for Visit: Alcohol intoxication History of Present Illness The patient is a 40-year-old male with past medical history of liver disease, hypertension, and diabetes mellitus who presented to [facility] ED for evaluation of altered level of consciousness. As reported by EMS, patient was found altered than usual baseline by family. Family reports that patient ran out of his insulin saline lately, noncompliant with medication regimen. Patient was seen and evaluated in the ED, laboratory data shows WBC 5.3, platelets 232, sodium 137, potassium 3.7, BUN nine, creatinine 1.04, GFR 93, glucose 360, calcium 10.0, lipase 46, alkaline phos 229, lactic acid 5.6, serum alcohol 313.7, blood pressure 113/72, heart rate 94, temperature 98.7 F, O2 saturation 99% on room air. Head CT showed no evidence of acute intracranial abnormality. Please see medication orders section in the computer. On my assessment, patient denied chest pain, no dizziness, diaphoresis, shortness of breaths, no abdominal pain, diarrhea, nausea, vomiting, fever, no chills. Patient was admitted for further evaluation and medical management. Past Medical History DM, HTN, Liver disease Past Surgical History Denies all surgeries Family History Reviewed, noncontributory to the management of this case. Past Social History The patient lives at home, smokes cigarettes, drinks alcohol heavily, denies illicit drugs abuse. Review of Systems Constitutional: Yes: Weakness; No: Fever, Chills, Sweats, Malaise, Other Eyes: No: Pain, Vision change, Conjunctivae inflammation, Eyelid inflammation, Other, Redness ENT: No: Ear pain, Ear discharge, Nose pain, Nose discharge, Nose congestion, Mouth pain, Mouth swelling, Throat pain, Throat swelling, Other Respiratory: No: Cough, Dry, Shortness of breath, SOB with excertion, Wheezing, Hemoptysis, Pleuritic Pain, Sputum, Wheezing, Other Cardiovascular: No: Chest Pain, Palpitations, Orthopnea, Paroxysmal Noc. Dyspnea, Edema, Lt Headedness, Other Gastrointestinal: No: Nausea, Vomiting, Abdominal Pain, Diarrhea, Constipation, Melena, Hematochezia, Other Genitourinary: No Dysuria, No Frequency, No Incontinence, No Hematuria, No Retention, No Other Musculoskeletal: No: other, neck pain, shoulder pain, arm pain, back pain, hand pain, leg pain, foot pain Skin: No: Rash, Lesions, Jaundice, Bruising, Other Neurological: Other (Altered level of consciousness); No: Weakness, Numbness, Incoordination, Change in speech, Confusion, Seizures Allergies: Coded Allergies: Morphine (Verified Allergy, Unknown, 03/05/22) Exam Vital Signs Vital Signs Date Time Temp Pulse Resp B/P (MAP) Pulse Ox O2 Delivery O2 Flow Rate FiO2 01/10/25 19:26 98.7 94 16 113/72 99 98.7 01/10/25 19:20 Room Air* 0 21 General Appearance: Alert, Oriented X3, Cooperative, No acute distress HEENT: Atraumatic, PERRLA, EOMI, Mucous membr. moist/pink Respiratory: Normal air movement Cardiovascular: Regular rate, Normal S1, Normal S2, No murmurs Abdominal: Normal bowel sounds, Soft, No tenderness, No hepatospenomegaly, No masses Extremities: No clubbing, No cyanosis, No edema, Normal pulses, No tenderness/swelling Skin: No rashes, No significant lesion Neuro: Normal speech, Normal tone, Sensation intact, Cranial nerves 3-12 NL, Reflexes 2+, Other (Generalized weakness) Psych/Mental Status: Mental status NL, Mood NL Labs/Xrays Labs Test 01/10/25 19:46 01/10/25 18:21 01/10/25 17:14 Range/Units Lactic Acid Level 7.3 *H 0.4-2.0 mmol/L Troponin I High Sensitivity 4 </=54 ng/L White Blood Count 5.3 4.4-10.8 10^3/uL Red Blood Count 5.54 4.5-5.90 10^6/uL Hemoglobin 16.1 13.5-17.5 g/dL Hematocrit 47.7 41.0-53.0 % Mean Corpuscular Volume 86.2 80.0-100.0 fL Mean Corpuscular Hemoglobin 29.1 28.0-32.0 pg Mean Corpuscular Hemoglobin Concent 33.8 32.0-36.0 g/dL Red Cell Distribution Width 13.4 11.8-14.3 % Platelet Count 232 140-450 10^3/uL Mean Platelet Volume 8.3 6.9-10.8 fL Neutrophils (%) (Auto) 48.4 37.0-80.0 % Lymphocytes (%) (Auto) 41.7 10.0-50.0 % Monocytes (%) (Auto) 8.1 0.0-12.0 % Eosinophils (%) (Auto) 1.3 0.0-7.0 % Basophils (%) (Auto) 0.5 0.0-2.0 % Neutrophils # (Auto) 2.6 1.6-8.6 10 ^3/uL Lymphocytes # (Auto) 2.2 0.4-5.4 10 ^3/uL Monocytes # (Auto) 0.4 0-1.3 10 ^3/uL Eosinophils # (Auto) 0.1 0-0.8 10 ^3/uL Basophils # (Auto) 0 0-0.2 10 ^3/uL Nucleated Red Blood Cells 0.2 % Sodium Level 137 136-145 mmol/L Potassium Level 3.7 3.5-5.1 mmol/L Chloride Level 93 L 98-107 mmol/L Carbon Dioxide Level 25 20-31 mmol/L Anion Gap 19 H 5-15 Blood Urea Nitrogen 9 9-23 mg/dL Creatinine 1.04 0.700-1.30 mg/dL Glomerular Filtration Rate Calc 93 >90 mL/min BUN/Creatinine Ratio 8.7 L 10.0-20.0 Serum Glucose 360 H 74-106 mg/dL Calcium Level 10.0 8.7-10.4 mg/dL Total Bilirubin 0.4 0.2-1.0 mg/dL Aspartate Amino Transferase (AST) 23 13-40 U/L Alanine Aminotransferase (ALT) 26 7-40 U/L Alkaline Phosphatase 229 H 46-116 U/L Total Protein 7.9 5.7-8.2 g/dL Albumin 4.8 3.2-4.8 g/dL Lipase 46 12-53 U/L Plasma/Serum Blood Alcohol 313.7 H <10 mg/dL PATIENT: KYLEE ZURITA ACCT: [id number] UNIT: [id number] : 1985 LOC: ER ROOM / BED: / AGE / SEX: 40 / M ADM STATUS: REG ER SERVICE [id number] ORDERING PHYSICIAN: LANE CASEY MD PROCEDURE(s): HWOCT - HEAD WITHOUT CONTRAST REASON: [facility] ORDER NUMBER(s): [id number], ACCESSION NUMBER(s): [id number] EXAM: CT HEAD WITHOUT CONTRAST INDICATION: ams TECHNIQUE: CT images of the head were obtained without administration of IV contrast. CT scans at this facility use dose modulation, iterative reconstruct ion, and/or weight based dosing when appropriate to reduce radiation dose to as low as reasonably achievable. COMPARISON: CT HEAD WITHOUT CONTRAST on DOS: 10/27/22 FINDINGS: PARENCHYMA: No acute hemorrhage. There is no mass effect, midline shift, or herniation. There is preservation of the oliver white differentiation. Mild scattered hypoattenuation along the periventricular, centrum semiovale, and deep white matter tracts, which are nonspecific however statistically most likely represent chronic microvascular ischemic change. VENTRICLES: No hydrocephalus. EXTRA-AXIAL SPACES: No extra-axial fluid collections. OTHER: The bony structures are intact. Visualized portions of the paranasal sinuses and mastoid air cells are clear. Degenerative change of bilateral temporomandibular joints. IMPRESSION: 1. No CT evidence of an acute intracranial abnormality. ORDERING PHYSICIAN: LANE CASEY MD PROCEDURE(s): CXRP - CHEST PORTABLE REASON: [facility] ORDER NUMBER(s): [id number], ACCESSION NUMBER(s): [id number] CHEST RADIOGRAPH Indication: ams Technique: Single frontal view of the chest was obtained Comparison: XY CHEST XRAY 1 VIEW on DOS: 09/16/22, XY CHEST PORTABLE on DOS: 08/23/22, CHEST XRAY 1 VIEW on DOS: 06/12/20 FINDINGS: Lines and Tubes: None Lungs: No focal consolidation. Pleura: No effusion. No pneumothorax. Cardiomediastinal contours: Unremarkable Bones: No acute osseous abnormality. IMPRESSION: 1. No acute cardiopulmonary disease. SEPSIS Sepsis Screen Date sepsis recognized/suspect: Jan 10, 2025 Time Sepsis recognized/suspect: 1630 Recent Procedure: No On Antibiotic Therapy: No Respiratory Rate >20: No Heart Rate >90: No Temp<36 C (96.8 F) or >38.3 C: No SBP <90 or MAP <65 mmHG: No New Acute Mental Status Change: No Is the patient on CPAP, BIPAP,: No Physician Orders Urinalysis (01/10/25 16:38) Electrocardigram (01/10/25 16:38) Head Without Contrast (01/10/25 16:38) Blood Culture (01/10/25 16:38) Urine Bacterial Culture (01/10/25 16:38) Chest Portable (01/10/25 16:38) Troponin-I Hs (01/10/25 19:38) Electrocardigram (01/10/25 19:38) Drug Screen (01/10/25 17:52) Gabapentin Capsule (Neurontin Capsule) (01/10/25 22:00) Ceftriaxone Ivpb Rocephin (01/11/25 09:00) Vital Signs Date Time Temp Pulse Resp B/P (MAP) Pulse Ox O2 Delivery O2 Flow Rate FiO2 01/10/25 19:26 98.7 94 16 113/72 99 98.7 01/10/25 19:20 101 19 98 Room Air* 0 21 01/10/25 19:00 100 18 104/72 (83) 98 01/10/25 17:46 101 01/10/25 17:09 98.1 98 16 110/81 (91) 98 98.1 01/10/25 17:09 98 16 98 Room Air* 0 21 Laboratory Tests Test 01/10/25 17:14 01/10/25 19:46 Lactic Acid Level 5.6 mmol/L (0.4-2.0) *H 7.3 mmol/L (0.4-2.0) *H White Blood Count 5.3 10^3/uL (4.4-10.8) Medications Medications Dose Ordered Sig/Rosas Route Start Time Stop Time Status Last Admin Dose Admin Ceftriaxone Sodium 50 ml @ 100 mls/hr ONCE ONCE IV 01/10/25 18:45 01/10/25 19:14 DC 01/10/25 19:55 100 MLS/HR Sodium Chloride 1,000 ml @ 1,000 mls/hr Q1H ONCE IV 01/10/25 18:45 01/10/25 19:44 DC 01/10/25 18:45 1,000 MLS/HR Assessment/Plan Assessment/Plan Alcohol intoxication Altered mental status Acute metabolic encephalopathy Elevated lactic acid level Uncontrolled diabetes mellitus Diabetes mellitus with hyperglycemia Generalized weakness Plan 1. Admit to telemetry unit 2. Breathing treatment 3. Pain control management 4. IV antibiotic management 5. Management of fluids and electrolytes 6. Consultation for hospitalist 7. Diagnostic test head CT 8. DVT prophylaxis on SCDs 9. Repeat labs CBC, CMP in a.m. 10. Home medication reviewed and reconciled 11. Continue with current medical management 12. Treatment plan discussed with patient and RN. Patient verbalized understanding. Plan discussed with: Patient, Other (RN) My Orders Orders - SADIE JAIME DNP Procedure Category Date Status Time Gabapentin Capsule PHA 01/10/25 Verified (Neurontin Capsule) 22:00 Ceftriaxone Ivpb PHA 01/11/25 Verified Rocephin 09:00 Problem List: (1) Alcohol intoxication (2) Altered mental status (3) Acute metabolic encephalopathy (4) Elevated lactic acid level (5) Uncontrolled diabetes mellitus (6) Diabetes mellitus with hyperglycemia (7) Generalized weakness Date of Service: Jan 10, 2025 Billing Provider: SADIE JAIME DNP Common Visit Codes: [id number] INP/OBS CARE (HIGH) SADIE JAIME DNP Jan 10, 2025 21:42
[2025-01-10] MEDS ORDERED: HYDROcodone-ACET 5/325MG TAB PO PRN (21:45)
[2025-01-10] MEDS ORDERED: NITROGLYCERIN 0.4 MG SL TAB SL PRN (21:45)
[2025-01-10] MEDS ORDERED: hydrALAZINE HCL 20 MG/ML VL IV PRN (21:45)
[2025-01-10] MEDS ORDERED: ONDANSETRON HCL 4 MG/2 ML VIAL IV PRN (21:45)
[2025-01-10] MEDS ORDERED: ACETAMINOPHEN 325 MG TAB PO PRN (21:45)
[2025-01-10] MEDS ORDERED: DOCUSATE SOD 100 MG CAP PO PRN (21:45)
[2025-01-10] MEDS ORDERED: DEXTROSE (50%) 50ML SYRG IV PRN (21:45)
[2025-01-10] MEDS: THIAMINE HCL 100 MG TAB PO ONE (22:38)
[2025-01-10] MEDS: GABAPENTIN 300 MG CAP PO SCH (22:38)
[2025-01-10] MEDS: FOLIC ACID 1 MG TAB PO ONE (22:38)
[2025-01-11] MEDS: ACCU-CHEK COMFORT CURVE STRIP VI SCH (00:04)
[2025-01-11] MEDS: InsuLIN REG 1unit/0.01ml Soln (100units/ml) SC SCH (00:06)
[2025-01-11 00:18] LABS: Amphetamine Screen, Urine Neg (NEGATIVE); Barbiturate Scree,Urine Neg (NEGATIVE); Benzodiazephine Screen, Urine Neg (NEGATIVE); Cannabinoid Screen, Urine Neg (NEGATIVE); Cocaine Screen, Urine Neg (NEGATIVE); Opiate Scree,Urine Neg (NEGATIVE); Phencyclidine Screen, Urine Neg (NEGATIVE)
[2025-01-11 00:30] LABS: Urine Protein, UAD TRACE (Negative)
[2025-01-11 02:09] VITALS: PULSE 104; RESP 12; O2SAT 100
[2025-01-11] MEDS: SODIUM CHLORIDE 0.9% 1,000 ML IV SCH (02:28)
--- NOTE | 2025-01-11 02:47 | ECG ---
[facility] Test Date: 2025-01-10 Test Time: 17:46:49 Pat Name: KYLEE ZURITA Department: ED Room: [address] [place] [address] Gender: M Sharepoint Designer Developer: brooke : 1985 Requested By: LANE CASEY Order Number: [id number] Reading MD: Rush Leonard Measurements Intervals [place] Rate: 101 P: 46 NE: 128 QRS: -80 QRSD: 89 T: 67 QT: 356 QTc: 462 Interpretive Statements Sinus tachycardia Left anterior fascicular block Electronically Signed On 01-15-2025 19:10:44 PST by Rush Leonard Please click the below link to view image of tracing.
[2025-01-11 02:52] VITALS: PULSE 110; RESP 20; O2SAT 99
[2025-01-11 03:07] LABS: Hematocrit 40.1 % (41.0-53.0); Hemoglobin 13.8 g/dL (13.5-17.5); Mean Corpuscular Hemoglobin 29.5 pg (28.0-32.0); Mean Corpuscular Volume 85.8 fL (80.0-100.0); Nucleated Red Blood Cells % 0.2 %
[2025-01-11 03:21] LABS: Alanine Aminotransferase 23 U/L (7-40); Albumin 3.9 g/dL (3.2-4.8); Anion Gap 19 (5-15); BUN/Creatinine Ratio 15.9 (10.0-20.0); Blood Urea Nitrogen 10 mg/dL (9-23); Calcium 8.8 mg/dL (8.7-10.4); Carbon Dioxide 20 mmol/L (20-31); Potassium 3.6 mmol/L (3.5-5.1); Sodium 137 mmol/L (136-145); Total Protein 6.6 g/dL (5.7-8.2)
[2025-01-11 03:22] LABS: Bilirubin, Total 0.4 mg/dL (0.2-1.0)
[2025-01-11 03:25] LABS: Alkaline Phosphatase 171 U/L (46-116); Chloride 98 mmol/L (98-107); Glucose 123 mg/dL (74-106)
[2025-01-11 05:00] VITALS: BP 121/78; PULSE 99; O2SAT 98
[2025-01-11] MEDS: SODIUM CHLORIDE 0.9% 500 ML IV ONE (06:31)
[2025-01-11 07:51] LABS: Lactic Acid w/Reflex 4.8 mmol/L (0.4-2.0)
[2025-01-11 08:00] VITALS: PULSE 96; RESP 13; O2SAT 96
[2025-01-11] MEDS: THIAMINE HCL 100 MG TAB PO SCH (10:34)
[2025-01-11] MEDS: FOLIC ACID 1 MG TAB PO SCH (10:34)
[2025-01-11 10:45] VITALS: BP 112/79; PULSE 97; RESP 16; TEMP 98.4; O2SAT 100
[2025-01-11 10:54] VITALS: BP 112/79; PULSE 97; RESP 16; TEMP 98.4; O2SAT 100
--- NOTE | 2025-01-11 23:45 | DVHDS2 ---
Discharge Summary Date of Admission Jan 10, 2025 at 21:38 Date of Discharge: Jan 11, 2025 Labs/Diagnostic Data: Laboratory Results Test 01/11/25 11:34 01/11/25 07:03 01/11/25 02:30 01/10/25 23:50 POC Glucose 281 mg/dl (70-106) Lactic Acid Level 4.8 mmol/L (0.4-2.0) White Blood Count 5.6 10^3/uL (4.4-10.8) Red Blood Count 4.68 10^6/uL (4.5-5.90) Hemoglobin 13.8 g/dL (13.5-17.5) Hematocrit 40.1 % (41.0-53.0) Mean Corpuscular Volume 85.8 fL (80.0-100.0) Mean Corpuscular Hemoglobin 29.5 pg (28.0-32.0) Mean Corpuscular Hemoglobin Concent 34.5 g/dL (32.0-36.0) Red Cell Distribution Width 13.0 % (11.8-14.3) Platelet Count 179 10^3/uL (140-450) Mean Platelet Volume 8.3 fL (6.9-10.8) Neutrophils (%) (Auto) 55.3 % (37.0-80.0) Lymphocytes (%) (Auto) 31.5 % (10.0-50.0) Monocytes (%) (Auto) 11.9 % (0.0-12.0) Eosinophils (%) (Auto) 0.7 % (0.0-7.0) Basophils (%) (Auto) 0.6 % (0.0-2.0) Neutrophils # (Auto) 3.1 10 ^3/uL (1.6-8.6) Lymphocytes # (Auto) 1.8 10 ^3/uL (0.4-5.4) Monocytes # (Auto) 0.7 10 ^3/uL (0-1.3) Eosinophils # (Auto) 0 10 ^3/uL (0-0.8) Basophils # (Auto) 0 10 ^3/uL (0-0.2) Nucleated Red Blood Cells 0.2 % Sodium Level 137 mmol/L (136-145) Potassium Level 3.6 mmol/L (3.5-5.1) Chloride Level 98 mmol/L (98-107) Carbon Dioxide Level 20 mmol/L (20-31) Anion Gap 19 (5-15) Blood Urea Nitrogen 10 mg/dL (9-23) Creatinine 0.63 mg/dL (0.700-1.30) Glomerular Filtration Rate Calc 123 mL/min (>90) BUN/Creatinine Ratio 15.9 (10.0-20.0) Serum Glucose 123 mg/dL (74-106) Calcium Level 8.8 mg/dL (8.7-10.4) Total Bilirubin 0.4 mg/dL (0.2-1.0) Aspartate Amino Transferase (AST) 29 U/L (13-40) Alanine Aminotransferase (ALT) 23 U/L (7-40) Alkaline Phosphatase 171 U/L (46-116) Total Protein 6.6 g/dL (5.7-8.2) Albumin 3.9 g/dL (3.2-4.8) Urine Color Light-yellow (Yellow) Urine Clarity Clear (Clear) Urine pH 6.5 (5.0-9.0) Urine Specific [place] 1.030 (1.001-1.035) Urine Protein Trace (Negative) Urine Ketones 2+ (Negative) Urine Blood Trace /uL (Negative) Urine Nitrite Negative (Negative) Urine Bilirubin Negative (Negative) Urine Urobilinogen Normal mg/dL (Negative) Urine Leukocyte Esterase Negative /uL (Negative) Urine RBC 4 /hpf (0 - 3) Urine Microscopic WBC 1 /HPF (0-3) Urine Squamous Epithelial Cells None seen /hpf (<5) Urine Bacteria None seen /hpf (None Seen) Urine Hyaline Casts Few /lpf (0 - 2) Urine Glucose 4+ mg/dL (Normal) Urine Opiates Screen Neg (NEGATIVE) Urine Fentanyl Screen Neg (NEGATIVE) Urine Barbiturates Screen Neg (NEGATIVE) Urine Phencyclidine Screen Neg (NEGATIVE) Urine Amphetamines Screen Neg (NEGATIVE) Urine Benzodiazepines Screen Neg (NEGATIVE) Urine Cocaine Screen Neg (NEGATIVE) Urine Cannabinoids Screen Neg (NEGATIVE) Test 01/10/25 22:12 01/10/25 17:14 Troponin I High Sensitivity < 3 ng/L (</=54) Lipase 46 U/L (12-53) Plasma/Serum Blood Alcohol 313.7 mg/dL (<10) Other Laboratory Tests 01/11/25 02:30 Brief Hx & Hospital Course: The patient is a 40-year-old male with past medical history of liver disease, hypertension, and diabetes mellitus who presented to [facility] ED for evaluation of altered level of consciousness. As reported by EMS, patient was found altered than usual baseline by family. Family reports that patient ran out of his insulin saline lately, noncompliant with medication regimen. Patient was seen and evaluated in the ED, laboratory data shows WBC 5.3, platelets 232, sodium 137, potassium 3.7, BUN nine, creatinine 1.04, GFR 93, glucose 360, calcium 10.0, lipase 46, alkaline phos 229, lactic acid 5.6, serum alcohol 313.7, blood pressure 113/72, heart rate 94, temperature 98.7 F, O2 saturation 99% on room air. Head CT showed no evidence of acute intracranial abnormality. Please see medication orders section in the computer. On my assessment, patient denied chest pain, no dizziness, diaphoresis, shortness of breaths, no abdominal pain, diarrhea, nausea, vomiting, fever, no chills. Patient was admitted for further evaluation and medical management. pt admitted and managed for the following conditions Alcohol intoxication Altered mental status Acute metabolic encephalopathy Elevated lactic acid level Uncontrolled diabetes mellitus Diabetes mellitus with hyperglycemia Generalized weakness pt left AMA Condition at Discharge: Fair Final Diagnosis/Problems List see above Discharge Disposition: AMA Discharge Instruct/Medications Scheduled Gabapentin (Gabapentin), 1 CAP PO TID, (Reported) Insulin Glargine (Lantus), 20 UNIT SC QPM, (Reported) Insulin Glargine (Lantus), 40 UNIT SC DAILY Insulin Glargine (Lantus), 40 UNIT SC QPM, (Reported) Insulin Lispro (Human) (Humalog), 12 UNIT SC TID Thiamine HCl (Thiamine Hydrochloride), 100 MG PO DAILY Miscellaneous Medications Naltrexone (Vivitrol), IM, (Reported) Discharge Statement: "Patient was advised to return to the ER or call 911 if any headaches, dizziness, shortness of breath, chest pain, abdominal pain, bleeding, fevers, or worsening of medical condition. Patient was counseled about treatment plan, medications, possible side effects, patientverbalized understanding. All questions were answered to the best of my ability. This discharge took greater then 30 minutes in planning, reviewing documentation, counseling the patient, and discussing with other team members." ASSESSMENT ASSESSMENT Assessment MIRZA FERRER DO Jan 11, 2025 23:45
== END 2025-01-11 11:55 | disposition left against medical advice (07) | DRG 420 ==
LOC: EDBD 16:17 → ER 16:17 → OVERFLOW 21:38
PROVIDERS: ADMIT Nurse Practitioner Family; ATTEND Nurse Practitioner Family
DX: E11.65 Type 2 diabetes mellitus with hyperglycemia (principal); G93.41 Metabolic encephalopathy; I10 Essential (primary) hypertension; F10.129 Alcohol abuse with intoxication, unspecified; E87.20 Acidosis, unspecified; F17.210 Nicotine dependence, cigarettes, uncomplicated; Z53.29 Procedure and treatment not carried out because of patient's decision for other reasons; Y90.8 Blood alcohol level of 240 mg/100 ml or more; Z88.5 Allergy status to narcotic agent; Z91.148 Patient's other noncompliance with medication regimen for other reason; Z79.4 Long term (current) use of insulin
CPT/HCPCS: 36415; 70450; 71045; 80053; 80307; 80320; 81001; 82962; 83605; 83690; 84484; 85025; 87040; 87086; 93005; 96361; 96365; 99291; G0378; J1815